=== PATIENT | female | born 1980 ===

== ENCOUNTER 2022-01-09 11:42 | Outpatient (CLI) | payer MEDICAID, SELFPAY ==
[2022-01-09 18:08] LABS: Albumin* 4.3 g/dL (3.3-5.0); Chloride* 107 mmol/L (96-114); Potassium* 4.6 mmol/L (3.6-5.1); Sodium* 140 mmol/L (135-149)
[2022-01-09 18:10] LABS: Creatinine* 0.7 mg/dL (0.5-1.5); Estimated Glomerular Filt Rate 112.75
[2022-01-09 18:11] LABS: Aspartate Amino Transferase* 33 U/L (12-35); Bilirubin Total* 0.8 mg/dL (0.1-1.5); Carbon Dioxide* 25 mmol/L (20-32)
[2022-01-09 18:23] LABS: Alanine Aminotransferase* 39 U/L (4-35); Alkaline Phosphatase* 93 U/L (40-150); Blood Urea Nitrogen* 9 mg/dL (5-24); Calcium* 9.8 mg/dL (8.4-10.6); Glucose* 92 mg/dL (60-115); Total Protein* 7.3 g/dL (6.0-8.3)
== END 2022-01-09 11:43 | disposition home or self-care (01) ==
PROVIDERS: PCP Family Medicine; Visit Provider Family Medicine
DX: Z00.00 Encounter for general adult medical examination without abnormal findings (principal); R20.2 Paresthesia of skin; N92.0 Excessive and frequent menstruation with regular cycle; N97.9 Female infertility, unspecified
CPT/HCPCS: 80053; 84443

== ENCOUNTER 2022-01-21 14:39 | Outpatient (CLI) | payer MEDICAID, SELFPAY ==
--- NOTE | 2022-01-21 15:00 | CRLHL7_ITS ---
For Patients: As a result of the Century Cures Act, medical imaging exams and procedure reports are released immediately into your electronic medical record. You may view this report before your referring provider. If you have questions, please contact your health care provider. INDICATION: Uterine fibroids that. LMP: 01/08/2022. TECHNIQUE: Both transabdominal and endovaginal studies were performed. The endovaginal study was included to better visualize the endometrium and ovaries. FINDINGS: There are innumerable hypoechoic uterine fibroids throughout the myometrium almost completely replacing the normal myometrial tissue. These measure up to 3.5 cm in diameter. The uterus is enlarged measuring 17.7 x 6.8 x 15.3 cm. The endometrium is not optimally visualized due to the numerous fibroids. Endometrial thickness is approximately 1.2 cm although this measurement is not certain due to the poor visualization as result of the fibroids. There is a questionable endometrial polyp measuring 1.6 x 0.9 x 1.0 cm although visualization is limited. There are 2 questionable endocervical polyps that measure up to 1.5 x 0.7 x 0.7 cm and 1.3 x 0.4 x 0 0.6 cm. There is a hemorrhagic cyst of the left ovary measuring 2.6 x 1 3 x 1.7 cm. The left ovary measures 3.7 x 1.0 x 3.1 cm. There is normal blood flow within this ovary respect of imaging. The right ovary was not visualized either transabdominally or endovaginally. There is small amount free fluid posterior cul-de-sac. IMPRESSION: 1. Severe bulky fibroid uterus. There are innumerable uterine fibroids. 2. Poor visualization of the endometrium due to numerous. Possible endometrial polyp. 3. Nonvisualization the right ovary. 4. Possible endocervical polyps although again poor visualization due to the numerous fibroids. 5. There is a 2.6 cm hemorrhagic cyst left ovary. 6. Nonvisualization of the right ovary. Dictated by Ameya Granger MD @ 01/21/2022 3:44:12 PM (Electronically Signed)
== END 2022-01-21 14:40 | disposition home or self-care (01) ==
PROVIDERS: PCP Family Medicine; Visit Provider Obstetrics & Gynecology
DX: D25.9 Leiomyoma of uterus, unspecified (principal)
CPT/HCPCS: 76830; 76856

== ENCOUNTER 2022-01-29 07:45 | Inpatient (IN) | payer MEDICAID, SELFPAY ==
[2022-01-29] VITALS (28 sets, daily range): BP systolic 102–155; BP diastolic 41–94; PULSE 60–85; RESP 13–19; TEMP 36–36.9; O2SAT 95–100; BMI 36.6
[2022-01-29 08:39] LABS: Hemoglobin* 14.1 gm/dL (12.0-16.0)
[2022-01-29] MEDS: ETHYL CHLORIDE 1 APPLICATION 1 APPLIC TOPICAL (08:56)
[2022-01-29] MEDS: SODIUM CHLORIDE 0.9 % (FLUSH) 10 ML SYRINGE IVF (08:57)
[2022-01-29] MEDS: LACTATED RINGERS 1000 ML 1,000 ML 100 ML IV ×2 (08:57→10:15)
--- NOTE | 2022-01-29 09:16 | SUR.PREOP ---
Pt was given on calming aromatherapy patch. Attached to right side of gown. pt was screened for any allergies before given.
[2022-01-29] MEDS: CEFAZOLIN 2 GM INJ IVP (10:12)
--- NOTE | 2022-01-29 11:03 | PC.NURSE ---
1800CC NACL IRRIGATION USED DURING HYSTEROSCOPY; 650CC DEFICIT
[2022-01-29] MEDS: 0.9 % SODIUM CHLORIDE 100 ml INJECTION (11:10)
[2022-01-29] MEDS: VASOPRESSIN 20 UNIT/ML INJ 10 UNIT INJECTION (11:10)
--- NOTE | 2022-01-29 12:05 | W.PM.NB ---
Nerve Block Nerve Block Time Seen by Provider: 10:20 Date Seen: 01/29/22 Type of block requested by surgeon for post-operative analgesia: TAP Side: bilateral Time out performed: Yes Verification of patient name: Yes Verification of date of : Yes Site marking: site marked Name of person performing procedure: Rob Continuous monitoring Was continuous monitoring of O2 sat, B/P, cardiac/vascular sonographer, recorded every 15 minutes?: Yes Procedure Checklist: sterile prep, needles and gloves Ultrasound guided. Images saved: Yes Medications given in 5ml increments after negative aspiration: Marcaine %: 0.5 mL: 15 Needle gauge: 20 and Exparel mL: 10 Patient tolerated procedure well: Yes Additional comments: Needle noted between TA and IO Block Charges Block Charge (with Pro Fee): TAP Bilateral Use of Ultrasound Machine for Block: Yes- US Guidance/pain block
--- NOTE | 2022-01-29 12:28 | SUR.OPER ---
PEDERSON CATHETER PLACED INTRAOPERATIVELY PER SURGEON AND TAKEN OUT AT END OF CASE PER SURGEON
--- NOTE | 2022-01-29 13:37 | W.ANESCHARGE ---
Anesthesia Charges Start Date/Time Anesthesia Start Date: 01/29/22 Anesthesia Start Time: 09:56 Stop Date/Time Anesthesia Stop Date: 01/29/22 Anesthesia Stop Time: 13:34 Summary Emergency: No
--- NOTE | 2022-01-29 13:41 | W.ANESCHARGE ---
Anesthesia Charges Start Date/Time Anesthesia Start Date: 01/29/22 Anesthesia Start Time: 09:56 Stop Date/Time Anesthesia Stop Date: 01/29/22 Anesthesia Stop Time: 13:34 Summary Emergency: No
[2022-01-29] MEDS: fentaNYL 100 MCG/2 ML inj 50 MCG IVP (14:06)
[2022-01-29] MEDS: ONDANSETRON 2 MG/ML inj 4 MG IVP ×2 (14:21→18:58)
[2022-01-29] MEDS: KETOROLAC 30 MG/ML inj IVP ×2 (14:52→21:23)
[2022-01-29] MEDS: LACTATED RINGERS 1000 ML 1,000 ML 125 ML IV ×2 (16:38→23:06)
--- NOTE | 2022-01-29 17:32 | P.GYNPRC_ITS ---
Procedure Note Date Seen: 01/29/22 Procedure Details: REFERRING PHSICIAN/PROVIDER: Dr. Daigle PREOPERATIVE DIAGNOSIS: Symptomatic uterine fibroids. Desired fertility. POSTOPERATIVE DIAGNOSIS: Symptomatic uterine fibroids. Desired fertility. NAME OF PROCEDURE: 1. Hysteroscopy with submucosal myomectomy. 2. Abdominal myomectomies. SURGEON: Dr. Griffith CONVERTER SKIMMER: Dr. Hudson and Zuleima MORGAN ANESTHESIA: General endotracheal. COMPLICATIONS: None. ESTIMATED BLOOD LOSS: 610 cc. DRAINS: Lieberman to gravity. FINDINGS: Hysteroscopy findings: Submocosal myoma bulging into the uterine cavity posteriorly, approximately 1/3 its diameter. Suggestion of a large anterior myoma close to the endometrial cavity. Laparotomy findings: enlarged, irregularly shaped 20-week sized uterus containing multiple fibroids ranging in size from 1 cm to 10 cm diameter, including three large anterior subserosal fibroids, two large fundal subserosal fibroids, and one large exophytic posterior fibroid. The uterus was twisted 90 degrees clockwise in the abdomen/pelvis due to its bulk and irregular shape. The ovaries and fallopian tubes appeared normal. The appendix was visualized and noted to be normal in appearance. PROCEDURE: After obtaining informed consent, the patient was taken to the operating room where general anesthesia was obtained without difficulty. She was prepared and draped in the normal sterile fashion in the dorsal supine position with legs in Melvin stirrups. An open-sided bivalve speculum was introduced into the vagina and the cervix visualized. The anterior lip of the cervix was grasped with a single-tooth tenaculum for traction. The cervix was gently dilated to a #6 Hegar dilator. A hysteroscope was then advanced under direct visualization through the cervix into the uterine cavity. Sterile normal saline was used as distending medium. The uterine cavity was carefully inspected with the findings noted above. Pictures were taken for documentation purposes. The TruClear morcellator was inserted through the operating channel in the hysteroscope. The morcellator with dense tissue blade was used to remove the posterior submucosal fibroid in its entirety where it was bulging into the cavity. The hysteroscope was then removed. A [employer] uterine manipulator was placed. The tenaculum was removed. A Libeerman catheter was inserted sterilely into the bladder. I changed gown and gloves and my attention was turned to the abdomen. A Pfannenstiel skin incision was made with a scalpel. This incision was carried down to the underlying layer of fascia with the Bovie. The fascia was incised in the midline and the incision extended laterally. The superior and inferior aspects of the fascial incision were grasped with Otney clamps and the underlying rectus muscles dissected off sharply. The rectus muscles were in the midline. The underlying peritoneum was identified and entered bluntly. The peritoneal incision was extended superiorly and inferiorly with good visualization of the bladder. The patient was placed in some mild Trendelenburg positioning. The bowels were packed cephalad using a large moistened laparotomy sponge. The Gerardo O retractor was placed in the incision. This provided excellent visualization of the pelvis. The pelvis was inspected with the findings noted above. The uterus was exteriorized and rotated toits proper anatomic position. A dilute solution of vasopressin (10 units in 100 mL saline) was injected into the anterior uterine serosa in the midline over the largest anterior fibroid. The serosa was then incised vertically with the scalpel down to the fibroid capsule. The serosal edges were grasped with Allis clamps. The fibroid was grasped with a perforating towel clamp and dissected from the myometrium bluntly using a finger to establish the plain between the capsule and the myometrium. Vascular pedicles were transected using electrocautery. The fibroid was removed entirely and passed off the field. A smaller fibroid was palpated inferior to the first, and grasped and dissected free in a similar manner. The myometrium was reapproximated to close the excision base from the second dissection with interrupted sutures of 2-0 vicryl for hemostasis. A third anterior fibroid was dissected from the anterior myometrium through the same incision superiorly, after extending the incision approximately 3 cm superiorly. The myometrium was then reapproximated along the entire anterior insicion with interrupted sutures of 3-0 vicryl. The serosa was reapproximated with 2-0 vicryl using a baseball stitch. Additional dilute solution of vasopressin was injected into the serosa at the fundus. A transverse incision was made into the serosa across the fundus, well away from the fallopian tubes, over the surface of the two large fundal fibroids. The fibroids were grasped with perforating towel clamps, and bluntly dissected by developing a plane digitally with a finger and using electrocautery to lyse the vascular pedicles. A small 1x1.5 cm fibroid was also removed through this incision. The myometrium was closed in 2 layers with interrupted and a running locking stitch of 2-0 vicryl. The serosa was closed with a baseball stitch of 2-0 vicryl. There were 2 small serosal tears from the Allis clamps that was reapproximated with 3-0 chromic for hemostasis. The exophytic posterior fibroid was excised using electrocautery. The serosa was reapproximated in 2 layers with 2-0 and 3-0 vicryl. The abdomen and pelvis was copiously irrigated. Hemostasis was observed. The bowel pack and Gerardo retractor were removed. Seprafilm was placed over the three serosa incisions. All laparotomy sponges and instruments were then removed. The subfascial tissues were carefully inspected and hemostasis assured. The fascia was reapproximated in a running fashion with a looped 0 Maxon suture. The subcutaneous tissues were copiously irrigated and hemostasis assured. The subcutaneous adipose layer was reapproximated with interrupted sutures of 3-0 chromic. The skin was closed in a subcuticular fashion with 4-0 Vicryl. LiquiBand and a dressing were applied. The uterine manipulator was removed. The patient tolerated the procedure well. Sponge, lap, needle, instrument counts were reported as correct x2. The patient was taken to recovery room awake and in stable condition. She received 2 g of IV Ancef preoperatively. The mass of 7 fibroids were weighed together at the conclusion of the procedure, weight was 473 g. PATHOLOGY SPECIMEN(S): 1. Submucosal fibroid fragments. 2, 7 uterine fibroids.
--- NOTE | 2022-01-29 19:19 | PC.NURSE ---
End of shift. pt has been pleasant. pain 1-09/06 and she did not want thing so far for pain. she had Toradol at the start of the shift. dressing is c/d/i active ice is on. scds are on. IV is patent. Lieberman is patent. she is drinking clears and had some nausea and got IV zofran. zofran did help. she was turned and repositioned. IS to 1000.
[2022-01-30 02:49] VITALS: BP 121/57; PULSE 69; RESP 16; TEMP 37.1; O2SAT 99
--- NOTE | 2022-01-30 05:49 | PC.NURSE ---
Shift 7p-7a: Pt. AOx4, following commands, VSS on RA. Pt. tolerating ice chips and fluids well w/o episodes of N/V. Pt. states she will try to advance diet this morning when she feels ready. Pt. dangled on edge of bed last night but refused further activity and stated she wants to get back into bed for the night. PRN toradol administered for 9/10 pain during activity. Pt.'s Lieberman catheter in place, draining well. LR infusion going at 125mL/hr. Pubic incision dressing C/D/I, pt. denies pain around surgical site but c/o of discomfort from gas. Pt. refused transfer to recliner this AM, states I will get up to the chair later today, not right now. Plan for more activity/mobility today as tolerated
[2022-01-30 07:00] VITALS: BP 111/55; PULSE 83; RESP 18; TEMP 37; O2SAT 97
[2022-01-30] MEDS: MORPHINE 4 MG/ML INJ IVP (07:31)
[2022-01-30] MEDS: SODIUM CHLORIDE 0.9 % (FLUSH) 10 ML SYRINGE IVF (07:32)
[2022-01-30] MEDS: KETOROLAC 30 MG/ML inj IVP ×2 (07:32→15:40)
--- NOTE | 2022-01-30 07:54 | PM.GYNPNPO ---
EXTENSION SPECIALIST - A/P Postoperative Procedures: Procedures Operation Date: 01/29/22 09:30 Actual Procedure Side Surgeon p Abdominal Myomectomy Not Applicable Pao Griffith MD s Hysteroscopy, D&C, TRUCLEAR Myomectomy Not Applicable Pao Griffith MD Postoperative day: 1 Postoperative status: doing well Postoperative plan: routine post-op care Time Spent With Patient Time: Total time spent is greater than 50% in coordination of care (as documented) at patient's floor/unit and/or counseling patient: Time with patient: less than 15 minutes EXTENSION SPECIALIST- PN:Subj Post-Op Subjective Time Seen by Provider: 07:54 Date Seen: 01/30/22 Post Operative Details: Post-operative day number 1: status post abdominal and hysteroscopic myomectomies. The patient did not sleep well due to discomfort. She states that the morphine makes her feel dizzy. he has not yet been up to ambulate. Lieberman catheter remains in the bladder. EXTENSION SPECIALIST-PN: Obj Exam Physical Exam: Vital signs: Temp Pulse Resp BP Pulse Ox O2 Del Method 98.7 F 69 16 121/57 L 99 01/30/22 02:49 01/30/22 02:49 01/30/22 02:49 01/30/22 02:49 01/30/22 02:49 01/30/22 02:49 Constitutional: Constitutional: mild distress (tearful secondary to discomfort) Routine Abdominal Exam: Abdominal: Present distended (mildly), soft and tenderness (diffusely) Comments: Pfannenstiel incision is intact, nontender, without erythema or warmth. Routine Extremities Exam: Extremities: Present normal inspection; Absent tenderness Urinary Catheter Management: 2-way Urethral: Cath placed during this visit: yes Urethral indwelling: Yes Reason for continuing: decision to DC catheter Insertion date: 01/29/22 Insertion time: 10:43 EXTENSION SPECIALIST - PN: Obj Data Labs Labs: Laboratory Results - last 24 hr 01/29/22 01/29/22 08:20 08:20 Hgb 14.1 Blood Type B Positive Antibody Screen NEGATIVE
[2022-01-30 09:36] LABS: Hemoglobin* 9.1 gm/dL (12.0-16.0)
[2022-01-30 11:00] VITALS: BP 110/55; PULSE 83; RESP 22; TEMP 37; O2SAT 98
--- NOTE | 2022-01-30 14:13 | PC.NURSE ---
End of Shift: Patient pleasant and cooperative. Patient vitally stable, lungs clear, BS WNL, IV SL and intact. Patient rated pain 6/10 this morning and tearful. Toradol and morphine given once, patient later rated pain 0/10. Patient has walked the bray x2, ice pack to abdomen used, and abdominal band applied. Lieberman removed tip intact. Patient has urinated in the toilet 250. Patient eating very lightly but tolerating regular diet. Patient has been up in chair for meals. Abdominal incision C/D/I.
[2022-01-30 15:40] VITALS: BP 113/48; PULSE 79; RESP 18; TEMP 37.1; O2SAT 99
[2022-01-30] MEDS: HYDROCODONE/ACETAMIN 7.5-325 TABLET 1 TAB PO ×2 (15:41→22:53)
[2022-01-30 19:00] VITALS: BP 114/63; PULSE 86; RESP 16; TEMP 36.6; O2SAT 99
--- NOTE | 2022-01-30 22:11 | PC.NURSE ---
End of Shift: Patient pleasant and cooperative. Afebrile. Lower abdominal incision C/D/I. Rating pain up to 3-6/10 and PRN Toradol and [place] given x1. Tolerating regular diet with no nausea. Passing flatus. Up walking in hallway.
[2022-01-30 23:00] VITALS: BP 121/61; PULSE 91; RESP 16; TEMP 37.2; O2SAT 99
[2022-01-31 03:00] VITALS: BP 114/72; PULSE 94; RESP 16; TEMP 37.7; O2SAT 94
[2022-01-31 05:04] VITALS: TEMP 37.3
[2022-01-31] MEDS: KETOROLAC 30 MG/ML inj IVP (05:04)
--- NOTE | 2022-01-31 05:46 | PC.NURSE ---
[id number]: patient up ad tanisha, incision glued and c/d/i. appears to have slept well overnight, pain meds per EMAR.
[2022-01-31 07:00] VITALS: BP 109/67; PULSE 84; RESP 20; TEMP 36.9; O2SAT 93
--- NOTE | 2022-01-31 08:49 | P.DS_ITS ---
DS: Providers Provider Date Seen: 01/31/22 Date of admission: 01/29/22 07:45 Primary care physician: Gopla Daigle MD Admitting Clinician: Pao Griffith MD Attending Physician on discharge: Pao Griffith MD Date of Discharge: 01/31/22 DS: Diagnosis Discharge Diagnosis (1) Status post myomectomy: Status: Acute (2) Anemia due to blood loss, acute: Status: Acute CAPACITY MANAGEMENT SPECIALIST-Discharge Summary Hospital Course Hospital Course: The patient is a 41 year old nulligravid women with dysmenorrhea and menorrhagia related to large uterine fibroids, and desired fertility. She was admitted to the hospital on 01/29/2022 for surgical management. She was taken to the operating room where she had an uncomplicated abdominal myomectomy and hysteroscopic submucosal myomectomy. Postoperatively, she did well. Her postop hemaglobin was 9.1, anemia related to acute blood loss, though she was asymptomatic. Vitals have been stable. She has remained afebrile. Today, on postoperative day 2, she continues to complain of pain. However, she reports that it is adequately controlled with pills. She has been able to ambulate Without difficulty. She is tolerating regular diet. She is passing flatus. Lieberman catheter has been removed, and she is voiding without difficulty. Time Spent with Patient Time attestation: Total time spent providing and/or coordinating discharge services: Time spent: Less than 30 minutes CAPACITY MANAGEMENT SPECIALIST - Exam Physical Exam: Vital signs: Temp Pulse Resp BP Pulse Ox O2 Del Method 98.4 F 84 20 109/67 93 01/31/22 07:00 01/31/22 07:00 01/31/22 07:00 01/31/22 07:00 01/31/22 07:00 01/31/22 07:00 Narrative: General: Pleasant, no acute distress Heart: Regular rate and rhythm, no murmur or gallop Lungs: Clear to auscultation bilaterally Abdomen: Normoactive bowel sounds, incision clean, dry, and intact Lower extremities: No edema or erythema CAPACITY MANAGEMENT SPECIALIST - DS: Data Data Completed and Pending Labs on day of discharge: Labs from last 24 hours 01/30/22 09:24 Hgb 9.1 L Procedures Procedures: Procedures Operation Date: 01/29/22 09:30 Actual Procedure Side Surgeon p Abdominal Myomectomy Not Applicable Pao Griffith MD s Hysteroscopy, D&C, TRUCLEAR Myomectomy Not Applicable Pao Griffith MD Discharge Plan Discharge Disposition: Home, Self-Care Date of Admission: 01/29/22 07:45 Attending Provider on Discharge: Rachele Hudson Primary Care Provider: Gopal Daigle Condition: Stable Anticipated Discharge Date/Time: 01/31/22 08:48 Discharge Medications: New hydrocodone-acetaminophen 7.5-325 mg Tablet 1 tab PO Q6H PRN (Reason: 4 OR GREATER ON PAIN SCALE) Qty: 20 0RF ibuprofen 600 mg Tablet 600 mg PO Q6H PRN (Reason: Pain) Qty: 30 0RF ferrous sulfate [Iron (ferrous sulfate)] 325 mg (65 mg iron) tablet 325 mg PO DAILY Qty: 30 0RF docusate sodium [Stool Softener] 100 mg capsule 100 mg PO DAILY Qty: 30 0RF No Action No Known Home Medications Discharge Orders: Discharge Order (Routine); Ordered 01/31/22 Ordered By: Rachele Hudson Patient Education: Deep Sedation (DC), Hysteroscopy (DC) Activity Restrictions/Additional Instructions: Discharge instructions were reviewed with the patient including signs and symptoms of infection and medications to use for pain.? ? No lifting greater than 25 pounds for 6 weeks. Nothing per vagina for 6 weeks. Off work or school for 3 weeks. ? Follow up with your surgeon in 2 weeks for incision check and 6 weeks for a postoperative visit or sooner as needed. Activity Level: No strenuous activity Discharge Diet: Regular Follow Up Appointments: Gopal Daigle MD [Primary Care Provider] - Forms: [employer] Info Instructions
--- NOTE | 2022-01-31 09:33 | PC.NURSE ---
Discharge: Patient pleasant and cooperative. Patient vitally stable, lungs clear, BS WNL, IV removed, catheter intact. Patient rated pain 4/10, declined pain medication. Patient abdominal incision C/D/I. Patient independent in room, tolerating regular diet, urinating, and not yet passing gas today but was yesterday. Patient signed belongings sheet and discharge form. Patient had no further questions. Patient left the floor by wheelchair at 0930 with family and belongings.
== END 2022-01-31 09:30 | disposition home or self-care (01) | DRG 742 ==
PROVIDERS: Admitting Provider Obstetrics & Gynecology; PCP Family Medicine; Visit Provider Obstetrics & Gynecology
PROC: 0UB90ZZ Excision of Uterus, Open Approach (ICD-10-PCS; CPT 58140; principal; 2022-01-29 09:15)
PROC: 0UDB8ZZ Extraction of Endometrium, Via Natural or Artificial Opening Endoscopic (ICD-10-PCS; CPT 58558; 2022-01-29 09:15)
DX: D25.0 Submucous leiomyoma of uterus (principal); D62 Acute posthemorrhagic anemia; N94.6 Dysmenorrhea, unspecified; N92.0 Excessive and frequent menstruation with regular cycle
CPT/HCPCS: 00840; 36415; 64488; 76942; 81025; 85018; 86850; 86900; 86901; 88305; A9270; C9290; J0330; J0690; J1100; J1170; J1885; J2250; J2270; J2405; J2704; J3010; J3490; J7120